=== PATIENT | male | born 1945 | race Asian ===

== ENCOUNTER 2016-07-29 15:39 | Inpatient (IN) | payer OTHER ==
--- NOTE | 2016-07-29 16:02 | CPEKG ---
Heart Rate: 59 RR Interval: 1017 P-R Interval: 176 QRSD Interval: 100 QT Interval: 496 QTC Interval: 492 P [place]: 82 QRS [place]: 46 T Wave [place]: 175 EKG Severity - ABNORMAL ECG - EKG Impression: SINUS RHYTHM EKG Impression: PROBABLE LVH WITH SECONDARY REPOL ABNRM EKG Impression: similar to previous Electronically Signed By: Thee Manley 29-Jul-2016 16:46:15
[2016-07-29 16:10] LABS: % IMMATURE GRANULYOCYTES 0.2 % (0.0-1.1); ABSOLUTE IMMATURE GRANULOCYTES 0.01 10^3/uL (0.00-0.10); ADD DIFF? NO; ADD MORPH? NO; ADD SCAN? NO; ATYPICAL LYMPHOCYTE FLAG 10 (0-99); FRAGMENT RBC FLAG 0 (0-99); HEMATOCRIT 35.6 % (40.0-51.0); HEMOGLOBIN 11.8 g/dL (13.7-17.5); LEFT SHIFT FLG 0 (0-99); LIPEMIA HEMOLYSIS FLAG 80 (0-99); MEAN CELL HEMOGLOBIN 30.8 pg (27.9-34.1); MEAN CELL HEMOGLOBIN CONCENTR. 33.1 g/dL (32.4-36.7); MEAN PLATELET VOLUME 9.9 fL (8.7-11.7); PLATELET CLUMPS FLAG 0 (0-99); PLATELET COUNT 147 10^3/uL (150-400); RED BLOOD CELL COUNT 3.83 10^6/uL (4.40-6.38); RED CELL DISTRIBUTION WIDTH 13.2 % (11.5-15.2)
[2016-07-29 16:24] LABS: INR 1.26 (0.83-1.16); PROTIME(PATIENT) 15.8 SEC (12.0-15.0)
[2016-07-29 16:33] LABS: ALANINE AMINOTRANSFERASE 48 IU/L (21-72); ALBUMIN 3.9 g/dL (3.5-5.0); ALKALINE PHOSPHATASE 81 IU/L (38-126); ANION GAP 13 mEq/L (8-16); ASPARTATE AMINOTRANSFERASE 35 IU/L (17-59); BILIRUBIN,TOTAL 0.6 mg/dL (0.1-1.4); CALCIUM 8.4 mg/dL (8.5-10.4); CARBON DIOXIDE 22 mEq/l (22-31); CHLORIDE 107 mEq/L (97-110); CREATININE 1.4 mg/dL (0.7-1.3); GLOMERULAR FILTRATION RATE 50; GLUCOSE 103 mg/dL (70-100); POTASSIUM 4.7 mEq/L (3.5-5.2); SODIUM 142 mEq/L (134-144); TOTAL PROTEIN 7.1 g/dL (6.3-8.2)
[2016-07-29 16:44] LABS: TROPONIN I 0.019 ng/mL (0-0.034)
--- NOTE | 2016-07-29 16:45 | EDPHY ---
H & P Stated Complaint: CP, SOB, and dizziness for 3 days Time Seen by Provider: 07/29/16 15:56 HPI/ROS: CHIEF COMPLAINT: Reduced exercise tolerance and dizziness HISTORY OF PRESENT ILLNESS: The patient is a 71-year-old man who is Mandarin Brazilian speaking. 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 It sounds as though he is here today for decreased exercise tolerance. his daughter states that on Wednesday and again today when he walked to her house he was more winded and tired than usual. He has not had recent fevers or illness. He does have a significant history of congestive heart failure also renal insufficiency, atrial fibrillation, recent coronary artery bypass and bioprosthetic mitral valve replacement. He has chronic parasternal chest pain from these procedures. He also has a history of diabetes type 2. Patient states that he feels dizzy like the room is spinning and that he has felt this way for almost a year since his surgery. He also states that he has intermittent chest pain but is not worse today. He has not had a cough. REVIEW OF SYSTEMS: Constitutional: See HPI EENTM: denies: blurred vision, double vision, nose congestion Respiratory: See HPI Cardiac: See HPI Gastrointestinal/Abdominal: denies: abdominal pain, diarrhea, nausea, vomiting, blood streaked stools Genitourinary: denies: dysuria, frequency, hematuria, pain Musculoskeletal: denies: joint pain, muscle pain Skin: denies: lesions, rash, jaundice, bruising Neurological: vertigo, generalized weakness no focal weakness denies: headache , numbness, paresthesia, tingling, Hematologic/Lymphatic: denies: blood clots, easy bleeding, easy bruising Immunologic/allergic: denies: HIV/AIDS, transplant EXAM: GENERAL: Thin, lying in bed, generally weak HEAD: Atraumatic, normocephalic. EYES: Patient has a difficult time cooperating with at eye exam. When he looks to the right he appears to have a gaze deficit in his right eye and cannot look past midline. He will not look to the left at all. even with fire prevention chief and daughter explaining and encouraging. He states that he cannot do it. Pupils equal round and reactive to light, sclera anicteric, conjunctiva are normal. ENT: TMs normal, nares patent, oropharynx clear without exudates. Moist mucous membranes. NECK: Normal range of motion, supple without lymphadenopathy or JVD. LUNGS: Breath sounds clear to auscultation bilaterally and equal. No wheezes rales or rhonchi. HEART: Regular rate and rhythm without murmurs, rubs or gallops. ABDOMEN: Soft, nontender, normoactive bowel sounds. No guarding, no rebound. No masses appreciated. BACK: No CVA tenderness, no spinal tenderness, step-offs or deformities EXTREMITIES: Normal range of motion, no pitting or edema. No clubbing or cyanosis. NEUROLOGICAL: No facial droop, no slurred speech Normal speech, normal gait. 5/5 strength, normal movement in all extremities, normal sensation PSYCH: Normal mood, normal affect. SKIN: Warm, dry, normal turgor, no visible rashes or lesions. Source: Patient, Family, Respiratory Supervisor, Old records Exam Limitations: Clinical condition, Language barrier - Medical/Surgical History Hx Asthma: No Hx Chronic Respiratory Disease: No Hx Diabetes: Yes Hx Cardiac Disease: Yes Hx Renal Disease: Yes Hx Cirrhosis: No Hx Alcoholism: No Hx HIV/AIDS: No Hx Splenectomy or Spleen Trauma: No Other PMH: card stents, NM, cardiogenic shock (Mar 2015) 3 vessel CABG 01/01/16 MVR, aspiration pneumonia, heart failure, renal failure, anemia, type 2 diabetes , ef 15%, afib, depression and aspiration - Family History Significant Family History: Diabetes, Hypertension - Social History Smoking Status: Former smoker Alcohol Use: None Drug Use: None Constitutional: Initial Vital Signs Temperature (C) 36.4 C 07/29/16 15:42 Heart Rate 57 L 07/29/16 15:42 Respiratory Rate 18 07/29/16 15:42 Blood Pressure 134/66 H 07/29/16 15:42 O2 Sat (%) 95 07/29/16 15:42 O2 Delivery Mode Room Air Allergies/Adverse Reactions: No Known Allergies Allergy (Verified 02/09/16 15:37) Home Medications: Medication Instructions Recorded Acetaminophen [Tylenol 325mg (*)] 650 mg PO HS 02/09/16 Aspirin [Aspirin 81mg (*)] 81 mg PO DAILY 02/09/16 Atorvastatin Calcium [Lipitor 20 20 mg PO HS 02/09/16 mg (*)] Omeprazole [Prilosec 20 mg] 20 mg PO DAILY 02/09/16 buPROPion SR [Wellbutrin 150mg SR 150 mg PO DAILY 02/09/16 (*)] traMADol [Ultram 50 mg (*)] 50 mg PO Q6H PRN 02/09/16 Amiodarone HCl [Pacerone (*)] 200 mg PO DAILY 04/10/16 Insulin Glargine [Lantus 100 10 units SC HS 04/10/16 UNITS/ML (*)] Ondansetron Odt [Zofran Odt 4 mg 4 mg PO Q6H PRN 04/10/16 (*)] Carvedilol [Coreg (*)] 3.125 mg PO BIDMEAL #60 tab 04/12/16 Furosemide [Lasix 20 MG (*)] 20 mg PO DAILY #30 tab 04/12/16 Tamsulosin HCl [Flomax 0.4 MG (*)] 0.4 mg PO DAILY #30 cap 04/12/16 Warfarin Sodium [Coumadin 3MG (*)] 3 mg PO DAILY #30 tab 04/12/16 Alfuzosin HCl [Alfuzosin HCl ER] 10 mg PO DAILY 07/29/16 Diclofenac Sodium [Voltaren Gel 1 kelli TP QID 07/29/16 (*)] Lisinopril [Zestril 5 mg (*)] 5 mg PO DAILY 07/29/16 Medical Decision Making - Diagnostics EKG Interpretation: An EKG obtained and was read and documented in trace view. Please see trace view for full reading and report. Sinus rhythm, LVH with repolarization abnormality, unchanged from previous. Imaging: X-ray: chest x-ray was obtained. I viewed the images myself on the PACS system. My interpretation of the images is: Increased atelectasis in right fissure, otherwise unchanged. The radiologist interpretation is same. Results: CT scan of the brain was obtained. The results of the study are negative for masses, multiple old areas of ischemia, atrophy. The study was read by Dr. Ramsey Godwin. I viewed the images myself on the PACS system. ED Course/Re-evaluation: The patient's initial lab work and x-ray and CT scan are unremarkable. He continues to feel weak and short of breath and dizzy. I will admit him for further workup and possibly MRI. 5:45 p.m. I discussed the case with Dr. Elgin Veliz who will admit to the medical service. He requested telemetry. Patient's initial EKG did, lab work and x-ray are reassuring. We did discuss possibly MRI for the possible gaze palsies. Differential Diagnosis: Partial list of the Differential diagnosis considered include but were not limited to; CHF, pneumonia, acute coronary disease and although unlikely based on the history and physical exam, I also considered CVA, tumor, urinary tract infection, sepsis. - Data Points Laboratory Results: Laboratory Results 07/29/16 16:00 07/29/16 16:00 07/29/16 16:00 WBC 6.40 10^3/uL (3.80-9.50) RBC 3.83 L 10^6/uL (4.40-6.38) Hgb 11.8 L g/dL (13.7-17.5) Hct 35.6 L % (40.0-51.0) MCV 93.0 fL (81.5-99.8) MCH 30.8 pg (27.9-34.1) MCHC 33.1 g/dL (32.4-36.7) RDW 13.2 % (11.5-15.2) Plt Count 147 L 10^3/uL (150-400) MPV 9.9 fL (8.7-11.7) Neut % (Auto) 50.5 % (39.3-74.2) Lymph % (Auto) 35.3 % (15.0-45.0) Delta % (Auto) 10.2 % (4.5-13.0) Eos % (Auto) 3.0 % (0.6-7.6) Baso % (Auto) 0.8 % (0.3-1.7) Nucleat RBC Rel Count 0.0 % (0.0-0.2) Absolute Neuts (auto) 3.24 10^3/uL (1.70-6.50) Absolute Lymphs (auto) 2.26 10^3/uL (1.00-3.00) Absolute Monos (auto) 0.65 10^3/uL (0.30-0.80) Absolute Eos (auto) 0.19 10^3/uL (0.03-0.40) Absolute Basos (auto) 0.05 10^3/uL (0.02-0.10) Absolute Nucleated RBC 0.00 10^3/uL (0-0.01) Immature Gran % 0.2 % (0.0-1.1) Immature Gran # 0.01 10^3/uL (0.00-0.10) PT 15.8 H SEC (12.0-15.0) INR 1.26 H (0.83-1.16) Sodium 142 mEq/L (134-144) Potassium 4.7 mEq/L (3.5-5.2) Chloride 107 mEq/L (97-110) Carbon Dioxide 22 mEq/l (22-31) Anion Gap 13 mEq/L (8-16) BUN 28 H mg/dL (7-23) Creatinine 1.4 H mg/dL (0.7-1.3) Estimated GFR 50 Glucose 103 H mg/dL (70-100) Calcium 8.4 L mg/dL (8.5-10.4) Total Bilirubin 0.6 mg/dL (0.1-1.4) AST 35 IU/L (17-59) ALT 48 IU/L (21-72) Alkaline Phosphatase 81 IU/L (38-126) Troponin I 0.019 ng/mL (0-0.034) Total Protein 7.1 g/dL (6.3-8.2) Albumin 3.9 g/dL (3.5-5.0) Departure - Departure Disposition: [facility] Inpatient Acute Clinical Impression: Dyspnea on exertion, Vertigo, Chest wall pain Condition: Fair
--- NOTE | 2016-07-29 17:29 | CT ---
CT Brain (Without Contrast) 1657 hours History: Dizziness, abnormal gaze, abnormal gait, prior infarcts. Technique: Axial computed tomographic images of the brain, without contrast. Dose reduction techniq ues were utilized. Comparison: March 2016. Findings: Multiple old infarcts involving the posteroinferior medial aspects of bilateral cerebellar hemispheres consistent with old PICA infarcts. Atrophy and possible old infarct of the right medull a. Severe atherosclerotic calcifications of bilateral vertebral arteries and basilar artery. Severe atherosclerotic calcifications of bilateral supraclinoid internal carotid arteries. Old linear infa rct in the left basal ganglia extending from the caudate body through the lentiform nucleus. Old sub centimeter lacunar infarct right caudate head. Asymmetric bilateral parietal atrophy. Ventricles, c isterns, and sulci are widened consistent with atrophy. No hydrocephalus, midline shift/herniation, or epidural/subdural hematomas. No acute intraparenchymal hemorrhage or mass effect. Cerebrovascula r atherosclerosis. Hypodensities in the white matter of bilateral cerebral hemispheres. Bone window s demonstrate no displaced fractures. Paranasal sinuses and mastoid air cells are clear. Impressions 1. Multiple old infarcts involving bilateral basal ganglia, left greater than right, and bilateral c erebellar hemispheres, PICA infarcts, and right side of the medulla. 2. No acute hemorrhage, hydrocephalus, or mass effect. 3. Severe cerebrovascular atherosclerosis. 4. No definite acute infarct. 5. Moderate diffuse atrophy. 6. Moderate microvascular ischemic gliosis. 7. Consider MRI of the brain, without and with contrast enhancement, if there is continued clinical concern. Findings and recommendations discussed with Emergency Department physician, Dr. Thee Manley, at 171 5 hours on July 29, 2016. Final report concurs with initial preliminary interpretation.
--- NOTE | 2016-07-29 17:37 | DX ---
PA and Lateral Chest July 29, 2016 History: Chest pain. Comparison: PA and lateral chest May 06, 2016. CT angiogram chest January 31, 2016. Findings: There is a moderate fluid collection in the right major fissure. Small bilateral pleural effusions are otherwise stable. Streaky opacities, most prominent in the left upper and lower lobes, are not significantly changed. Mild cardiomegaly, artificial mitral valve, coronary stent, and ster notomy wires are again noted. The bones are stable. Impressions 1. Increased fluid in the right major fissure, with otherwise stable small bilateral pleural effusio ns. 2. Stable streaky bilateral opacities suggesting atelectasis/scarring.
[2016-07-29] MEDS ORDERED: ONDANSETRON 4 MG/2 ML VIAL IVP PRN (17:57)
[2016-07-29] MEDS ORDERED: ONDANSETRON DISINTEGRATING 4 MG TAB PO PRN (17:57)
[2016-07-29] MEDS ORDERED: traMADol 50 MG TAB PO PRN (18:30)
--- NOTE | 2016-07-29 19:03 | GHP ---
[f rep st] HISTORY AND PHYSICAL DATE OF ADMISSION: 07/29/2016 CHIEF COMPLAINT: Dizziness. HISTORY OF PRESENT ILLNESS: This is a 71-year-old male with a significant cardiac history also [place] rin speaking who presents with dizziness. He was seen with the help of the language line outside sales account executive though history is still difficult. Apparently, he was at cardiac rehab today working on the [employer] when he became dizzy. He tells me that he has had left-sided stabbing chest pain for about the week. Since then, he has felt more short of breath. The dizziness was new today. He tells me th at this pain is similar to when he had cardiac issues requiring interventions in the past. He has be en taking all of his medications otherwise. His cardiac history is notable for having had a CABG in November. He had also had percutaneous stents vinicio audra before that. His last ejection fraction was measured in March of 2016 in our system here. I t showed an EF of 25%. I was informed by Dr Manley in the emergency department that he was concerned that the patient had a n eye deviation issue although he felt as though this exam was difficult. PAST MEDICAL/SURGICAL HISTORY: 1. Coronary artery disease, status post PCI as well as CABG. 2. Ischemic cardiomyopathy with an EF of 25%. 3. Closed head injury. 4. CVA. 5. Diabetes mellitus type 2. 6. DVT. 7. Paroxysmal atrial fibrillation. 8. Mitral regurgitation status post mitral valve replacement. 9. Depression. 10. Chronic renal failure. MEDICATIONS: Please see medication reconciliation. SOCIAL HISTORY: He lives with his daughter and family. He does not smoke. He does not drink. FAMILY HISTORY: Parents are . REVIEW OF SYSTEMS: Ten-point review of systems is conducted and is negative except per HPI. PHYSICAL EXAMINATION: VITAL SIGNS: Blood pressure 134/66, heart rate 57, respiration rate 18, satur ating 95% on room air, temperature 36.4. GENERAL: The patient is a pleasant man who appears comfort able. Otherwise, in no acute distress. HEENT: Mucous membranes moist. CARDIOVASCULAR: Regular ra te and rhythm. He has a 2/6 systolic murmur. He has a split S2. PULMONARY: Lungs clear bilaterall y. ABDOMEN: Soft, nontender, nondistended. SKIN: No rash. : No [place]. NEUROLOGIC: Shows him to be alert and oriented x3. It is unclear if he has a gaze deviation or not. He seems to have dif ficulty following eye movement commands through the outside sales account executive though I did note that he seemed to h ave full ocular range of motion when I was not examining him. PSYCHIATRIC: Shows a normal mood and affect. LABS: Hemoglobin is 11.8. INR is 1.26. Lactate is 1.3. Creatinine is 1.4. DATA: 1. I discussed this with Dr Manley, we will admit to telemetry. 2. I personally viewed and interpreted his chest x-ray. This shows sternotomy wires. There is noth ing acute. He has mild cardiomegaly. He does have bilateral pleural effusions. 3. EKG, which I personally reviewed and interpreted, shows an incomplete left bundle branch block. There is repolarization abnormality. This is unchanged from his prior. IMPRESSION/PLAN: A 71-year-old man presents with chest pain and dizziness. 1. Chest pain and dizziness in the setting of known coronary artery disease associated with some jc rtness of breath: Discussed with Dr. Rojas. We will monitor him on telemetry, follow serial cardiac enzymes, get an echocardiogram in the morning. Shortness of breath may be due to slightly increased fluid in the major fissure though would not explain his other complaints. Appreciate Cardiology's e valuation. 2. Question of eye gaze disorder: I think that this is more an issue of the patient not understandi ng the physical exam. I did see him move his eyes in all 4 quadrants when I was not actually examini ng him though he does not move them on command. He also tells me that his eyes are blurry though he says that this has been the case for some time. 3. Chronic kidney disease: Creatinine today is 1.4. This is at his baseline. 4. Anemia: Actually slightly higher than recent. 5. Ischemic cardiomyopathy: We will get echocardiogram. I note that he does not have an AICD in pl [place]. We will defer this to Cardiology. 6. Code status on his last admission was full. I will continue this. 7. Need for anticoagulation: His INR is low today. He has clots as well as atrial fibrillation. C ertainly, symptoms could be due to a pulmonary embolus. I will give him bridging therapy for now giv en acute complaints. 8. Diabetes mellitus: We will continue his home glargine, follow his blood sugars, place him on sli ding scale. 9. BPH: Flomax. /[id number]/MODL
[2016-07-29] MEDS ORDERED: D50W 25 GM/50 ML SYR IVP PRN (19:18)
[2016-07-29] MEDS ORDERED: HEPARIN 5,000 UNIT/0.5 ML SYR SC SCH (22:00)
[2016-07-29] MEDS: INSULIN GLARGINE 100 UNITS/ML SYRINGE SC SCH (23:01)
[2016-07-29] MEDS: ATORVASTATIN CALCIUM 20 MG TAB PO SCH (23:03)
[2016-07-29] MEDS: DICLOFENAC SODIUM TP SCH (23:03)
[2016-07-29] MEDS: ENOXAPARIN 60 MG/0.6 ML SYR SC SCH (23:03)
[2016-07-30] MEDS: DICLOFENAC SODIUM TP SCH ×4 (05:03→21:12)
[2016-07-30 06:14] LABS: % IMMATURE GRANULYOCYTES 0.1 % (0.0-1.1); ABSOLUTE IMMATURE GRANULOCYTES 0.01 10^3/uL (0.00-0.10); ADD DIFF? NO; ADD MORPH? NO; ADD SCAN? NO; ATYPICAL LYMPHOCYTE FLAG 10 (0-99); FRAGMENT RBC FLAG 0 (0-99); HEMATOCRIT 32.5 % (40.0-51.0); HEMOGLOBIN 11.2 g/dL (13.7-17.5); LEFT SHIFT FLG 0 (0-99); LIPEMIA HEMOLYSIS FLAG 90 (0-99); MEAN CELL HEMOGLOBIN 31.5 pg (27.9-34.1); MEAN CELL HEMOGLOBIN CONCENTR. 34.5 g/dL (32.4-36.7); MEAN CELL VOLUME 91.5 fL (81.5-99.8); MEAN PLATELET VOLUME 10.1 fL (8.7-11.7); PLATELET CLUMPS FLAG 10 (0-99); PLATELET COUNT 144 10^3/uL (150-400); RED BLOOD CELL COUNT 3.55 10^6/uL (4.40-6.38)
[2016-07-30 06:27] LABS: INR 1.33 (0.83-1.16); PROTIME(PATIENT) 16.5 SEC (12.0-15.0)
[2016-07-30 06:28] LABS: ANION GAP 9 mEq/L (8-16); CALCIUM 8.7 mg/dL (8.5-10.4); CARBON DIOXIDE 25 mEq/l (22-31); CHLORIDE 111 mEq/L (97-110); CREATININE 1.2 mg/dL (0.7-1.3); GLOMERULAR FILTRATION RATE > 60; GLUCOSE 101 mg/dL (70-100); SODIUM 145 mEq/L (134-144)
[2016-07-30] MEDS ORDERED: CARVEDILOL 3.125 MG TAB PO SCH (08:00)
[2016-07-30] MEDS: INSULIN LISPRO 100 UNIT/ML SC SCH ×3 (08:59→18:34)
[2016-07-30] MEDS ORDERED: FUROSEMIDE 20 MG TAB PO SCH (09:00)
[2016-07-30] MEDS ORDERED: TAMSULOSIN HCL 0.4 MG CAP PO SCH (09:00)
--- NOTE | 2016-07-30 09:48 | ECHO ---
[id number] + + [address] : : [place] [address] : : [phone] + Adult Echocardiographic Report + ---+ :Name: LEIDY Melvin Date: 07/30/2016 08:39 AM : : Hospital Admission Number: [id number] Location: 210: :: 1945 Gender: Male Height: 66 in : :Age: 71 yrs Race: Weight: 144 lb : :Reason For Study: Eval LV Fx : : BSA: 1.7 meters2 : :History: Chest Pain, Elevated Troponins, Known EF of 25% : :and MVR : + ---+ MMode/2D Measurements & Calculations IVSd: 1.1 cm LVIDd: 6.2 cm FS: 15.5 % Ao root diam: LVPWd: 1.1 cm LVIDs: 5.2 cm EDV(Teich): 2.9 cm 191.1 ml ACS: 1.2 cm ESV(Teich): 129.9 ml EF(Teich): 32.0 % LVLd ap4: 7.8 cm SV(MOD-sp4): EDV(MOD-sp4): 30.0 ml 123.0 ml LVLs ap4: 7.8 cm ESV(MOD-sp4): 93.0 ml EF(MOD-sp4): 24.4 % Normal Measurement Values: + + :LVIDd (3.5-5.7cm) IVSd (0.6-1.1cm) LVPWd (0.6-1.1cm) Aortic Root (2.0-3.7cm)Left Atrium (1.5-4.0cm): :LV Vol(d) (76-115ml) LV Vol(s) (29-48ml) Ejec Fraction (50-65%)PV Atul (0.6- 1.2m/s) TV Atul (0.4-1.0m/s) : :MV E Atul (0.8-1.0m/s)MV A Atul (0.3-1.0m/s)LVOT Atul (0.7-1.2m/s) Asc Ao Atul ( 0.9-1.8m/s) : + + Doppler Measurements & Calculations MV E max atul: MV V2 mean: MV P1/2t max atul: Ao V2 max: 184.4 cm/sec 104.1 cm/sec 205.0 cm/sec 108.6 cm/sec MV A max atul: MV mean PG: MV P1/2t: 113.4 msec Ao max P.0 cm/sec 5.7 mmHg MVA(P1/2t): 1.9 cm2 4.7 mmHg MV E/A: 1.7 MV V2 VTI: MV dec slope: MV dec time: 81.4 cm 0.37 sec 529.6 cm/sec2 LV V1 max: PA V2 max: PI end-d atul: TR max atul: 87.1 cm/sec 82.8 cm/sec 177.8 cm/sec 309.1 cm/sec LV V1 max PG: PA max PG: TR max P.0 mmHg 2.7 mmHg 38.2 mmHg RAP systole: 5.0 mmHg RVSP(TR): 43.2 mmHg Left Ventricle The left ventricle is mild to moderately dilated. There is normal left ventricular wall thickness. Ejection Fraction = 25%. There is Doppler evidence for diastolic dysfunction. There is severe global hypokinesis of the left ventricle. Known severe hypokinesis of the mid and basilar anteroseptal rae. Right Ventricle The right ventricle is normal in size and function. Atria The left atrial size is normal. Right atrial size is normal. Mitral Valve There is no mitral valve stenosis. There is trace to mild mitral regurgitation. There is a bioprosthetic mitral valve. The prosthetic mitral valve is well-seated. Normal prosthetic mitral valve gradients. Tricuspid Valve There is mild tricuspid regurgitation. Right ventricular systolic pressure is 43mmHg. There is Doppler evidence for mild pulmonary hypertension. Aortic Valve Mild Aortic Valve Calcification. There is no aortic stenosis. There is no aortic insufficiency. Pulmonic Valve The pulmonic valve is normal in structure and function. Trace pulmonic valvular regurgitation. Great Vessels The aortic root is normal size. Pericardium/Pleural There is no pericardial effusion. Conclusion A complete two-dimensional transthoracic echocardiogram was performed (2D, M-mode, Doppler and color flow Doppler). The left ventricle is mild to moderately dilated. Ejection Fraction = 25%. There is Doppler evidence for diastolic dysfunction. There is severe global hypokinesis of the left ventricle. Known severe hypokinesis of the mid and basilar anteroseptal rae. The left atrial size is normal. There is a bioprosthetic mitral valve. The prosthetic mitral valve is well-seated. There is no mitral valve stenosis. Normal prosthetic mitral valve gradients. There is trace to mild mitral regurgitation. There is mild tricuspid regurgitation. There is Doppler evidence for mild pulmonary hypertension. Right ventricular systolic pressure is 43mmHg. Mild Aortic Valve Calcification There is no aortic stenosis. There is no aortic insufficiency. The pulmonic valve is normal in structure and function. Trace pulmonic valvular regurgitation. The aortic root is normal size. There is no pericardial effusion. Final Reading Physician: Raya Perla signed on 07/30/2016 09:47 AM Ordering Physician: Elgin Veliz Performed By: Tyrone Nixon RDCS
[2016-07-30] MEDS: AMIODARONE HCL 200 MG TAB PO SCH (09:51)
[2016-07-30] MEDS: buPROPion SR 150 MG TAB PO SCH (09:51)
[2016-07-30] MEDS: LISINOPRIL 5 MG TAB PO SCH (09:51)
[2016-07-30] MEDS: PANTOPRAZOLE SODIUM 40 MG TAB PO SCH (09:51)
[2016-07-30] MEDS: ASPIRIN 81 MG CHEWABLE TAB PO SCH (09:51)
[2016-07-30] MEDS: TAMSULOSIN HCL 0.4 MG CAP PO SCH (09:51)
[2016-07-30] MEDS: ENOXAPARIN 60 MG/0.6 ML SYR SC SCH (09:52)
--- NOTE | 2016-07-30 10:42 | PDCARPN ---
Cardiology Progress Note Assessment/Plan: Assessment: Plan: Subjective: Reports sharp L sided chest pain and "puffiness". Objective: Vital Signs (8 Hrs) Temp Pulse Resp BP Pulse Ox 07/30/16 07:35 36.9 C 63 14 142/74 H 97 07/30/16 04:00 36.8 C 81 20 140/70 H 99 Intake/Output (24 Hrs) 07/29/16 07/30/16 07/31/16 05:59 05:59 05:59 Intake Total 240 Output Total 900 325 Balance -660 -325 Intake: Oral (ml) 240 Output: Urine (ml) 900 325 Urinal 900 325 Other: Weight 66.5 kg Result Diagrams: 07/30/16 05:35 07/30/16 05:35 Cardiac Labs: Cardiac Lab Results (72 Hrs) 07/30/16 07/30/16 05:35 00:10 Troponin I 0.050 H 0.027 - Physical Exam Constitutional: no apparent distress Eyes: anicteric sclera Ears, Nose, Mouth, Throat: moist mucous membranes Cardiovascular: regular rate and rhythm, no murmurs Respiratory: other (bibasilar rales) Gastrointestinal: normoactive bowel sounds, no masses Skin: no edema Psychiatric: cooperative, interactive, not anxious ICD10 Worksheet Patient Problems: Problems Problem Status Diagnosed Chest wall pain Acute Dehydration Acute Dyspnea on exertion Acute Heart failure Acute Hyperkalemia Acute Hypotension Acute Renal failure, acute Acute Vertigo Acute ISIDRO (acute kidney injury) Acute Atrial fibrillation Acute Bacteremia due to Enterococcus Acute Chest pain Acute Congestive heart failure Acute Empyema of pleural space Acute Hypoxia Acute Palliative care encounter Acute Pleuritis Acute Pulmonary edema Acute Right middle lobe pneumonia Acute Severe sepsis Acute CAD in elem artery Chronic Chronic anticoagulation Chronic Coronary stent restenosis Chronic Ischemic cardiomyopathy Chronic Language barrier, cultural differences Chronic S/P CABG x 3 Chronic S/P mitral valve replacement with bioprosthetic valve Chronic
[2016-07-30] MEDS ORDERED: diphenhydrAMINE 25 MG CAP PO ONE ×2 (10:43→12:37)
[2016-07-30] MEDS ORDERED: FAMOTIDINE 20 MG TAB PO ONE (10:43)
[2016-07-30] MEDS ORDERED: DIAZEPAM 5 MG TAB PO ONE (10:43)
[2016-07-30] MEDS ORDERED: FAMOTIDINE 20 MG TAB ONE (12:37)
[2016-07-30] MEDS ORDERED: ASPIRIN EC 325 MG TAB PO ONE (12:37)
[2016-07-30] MEDS ORDERED: DIAZEPAM 5 MG TAB ONE (12:37)
[2016-07-30] MEDS ORDERED: IOPAMIDOL (ISOVUE-370) 150 ML BTL IV ONE ×2 (14:12→14:56)
[2016-07-30] MEDS ORDERED: fentaNYL 100 MCG/2 ML INJ ONE (14:12)
[2016-07-30] MEDS ORDERED: LIDOCAINE 1% 30 ML SDV ONE (14:12)
[2016-07-30] MEDS ORDERED: MIDAZOLAM 2 MG/2 ML VIAL ONE (14:12)
[2016-07-30] MEDS ORDERED: ATROPINE SULFATE 1 MG/10 ML SYR ONE (15:21)
[2016-07-30] MEDS ORDERED: NITROGLYCERIN 0.4 MG BTL SL PRN (15:23)
[2016-07-30] MEDS ORDERED: ATROPINE SULFATE 1 MG/10 ML SYR IVP PRN (15:23)
--- NOTE | 2016-07-30 15:40 | PDDXCAT ---
Diagnostic Cath Note - . Date: 07/30/16 Monument Mason: Truman Indication: other (Recurrent chest pain, CAD with h/o CABG (and bio-MVR), Ischemic cardiomyopathy, Acute on chronic systolic CHF ) - Procedure Access: right groin Procedure: left heart catheterization, coronary angiography, left ventriculogram , vein graft injection, YORK injection, right heart catheterization - Materials Left Heart Cath size: 6F Left Heart Cath materials: standard multipack (JL4, JR4, pigtail) Right Heart Cath size: 7F Right Heart Cath materials: PWP catheter - Findings-Left Heart Catheterization LM: Mild disease. LAD: Proximal LAD stent with severe restenosis up to 90%; mid-LAD 100%. LCX: 80% ostial; mid-Circ 90% after the origin of OM-2 jeopardizing a small posterolateral branch. RCA: 70% proximal; mid-RCA 100%. rSV) SVG to diagonal: patent with good flow. 2) SVG to OM-2: patent with good flow. YORK: YORK to LAD patent with good flow. EDP: 24 mmHg LVEF: 20% Wall motion: Global hypokinesis with inferior akinesis. - Findings-Right Heart Catheterization RA: 8 mmHg RV: 46/6 mmHg PA: 44/18/28 mmHg O2 sat 64.2% PAOP: 22 mmHg AO: 138/62/90 mmHg O2 sat 97.0 % CO: 4.47 L/min CI: 2.5 L/min/sq mtr Complications: None Estimated blood loss: <50ml Closure method: manual pressure Assessment: 1) Ischemic cardiomyopathy with severely reduced left ventricular systolic function. 2) Coronary artery disease as described above. 3) All three bypass grafts patent. 4) Mild pulmonary hypertension. Plan: Gentle diuresis. Qualifies for consideration of ICD implantation. Uptitrate carvedilol for BP control and antianginal effect. Add long-acting nitrate therapy. Patient Problems: Problems Problem Status Diagnosed Chest wall pain Acute Dehydration Acute Dyspnea on exertion Acute Heart failure Acute Hyperkalemia Acute Hypotension Acute Renal failure, acute Acute Vertigo Acute ISIDRO (acute kidney injury) Acute Atrial fibrillation Acute Bacteremia due to Enterococcus Acute Chest pain Acute Congestive heart failure Acute Empyema of pleural space Acute Hypoxia Acute Palliative care encounter Acute Pleuritis Acute Pulmonary edema Acute Right middle lobe pneumonia Acute Severe sepsis Acute CAD in [place] artery Chronic Chronic anticoagulation Chronic Coronary stent restenosis Chronic Ischemic cardiomyopathy Chronic Language barrier, cultural differences Chronic S/P CABG x 3 Chronic S/P mitral valve replacement with bioprosthetic valve Chronic
--- NOTE | 2016-07-30 16:35 | HOSPPROG ---
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 Objective: Vital Signs Temp Pulse Resp BP Pulse Ox 36.7 C 60 14 125/70 H 98 07/30/16 11:48 07/30/16 11:48 07/30/16 11:48 07/30/16 11:48 07/30/16 11:48 Laboratory Results 07/30/16 05:35 07/30/16 05:35 07/29/16 07/30/16 07/31/16 05:59 05:59 05:59 Intake Total 240 Output Total 900 325 Balance -660 -325 PT 16.5 SEC (12.0-15.0) H 07/30/16 05:35 INR 1.33 (0.83-1.16) H 07/30/16 05:35 ICD10 Worksheet Patient Problems: Problems Problem Status Diagnosed Chest wall pain Acute Dehydration Acute Dyspnea on exertion Acute Heart failure Acute Hyperkalemia Acute Hypotension Acute Renal failure, acute Acute Vertigo Acute ISIDRO (acute kidney injury) Acute Atrial fibrillation Acute Bacteremia due to Enterococcus Acute Chest pain Acute Congestive heart failure Acute Empyema of pleural space Acute Hypoxia Acute Palliative care encounter Acute Pleuritis Acute Pulmonary edema Acute Right middle lobe pneumonia Acute Severe sepsis Acute CAD in [place] artery Chronic Chronic anticoagulation Chronic Coronary stent restenosis Chronic Ischemic cardiomyopathy Chronic Language barrier, cultural differences Chronic S/P CABG x 3 Chronic S/P mitral valve replacement with bioprosthetic valve Chronic
[2016-07-30] MEDS: WARFARIN SODIUM 3 MG TAB PO SCH (18:33)
[2016-07-30] MEDS: CARVEDILOL 6.25 MG TAB PO SCH (18:43)
[2016-07-30] MEDS: ATORVASTATIN CALCIUM 20 MG TAB PO SCH (21:11)
[2016-07-30] MEDS: HYDROCODONE/APAP 5/325 TAB PO PRN (21:11)
[2016-07-30] MEDS: INSULIN GLARGINE 100 UNITS/ML SYRINGE SC SCH (21:12)
[2016-07-31 05:11] LABS: INR 1.15 (0.83-1.16); PROTIME(PATIENT) 14.7 SEC (12.0-15.0)
[2016-07-31] MEDS: DICLOFENAC SODIUM TP SCH ×4 (05:19→20:49)
--- NOTE | 2016-07-31 08:42 | CPEKG ---
Heart Rate: 59 RR Interval: 1017 P-R Interval: 196 QRSD Interval: 100 QT Interval: 448 QTC Interval: 444 P Greenfield: 81 QRS [place]: 54 T Wave [place]: 163 EKG Severity - ABNORMAL ECG - EKG Impression: SINUS RHYTHM EKG Impression: LVH WITH SECONDARY REPOL ABNRM Electronically Signed By: Freeman Rojas 31-Jul-2016 17:44:49
[2016-07-31] MEDS: CARVEDILOL 6.25 MG TAB PO SCH (08:53)
[2016-07-31] MEDS ORDERED: FUROSEMIDE 40 MG/4 ML VIAL IVP SCH (09:00)
[2016-07-31] MEDS: LISINOPRIL 5 MG TAB PO SCH (10:00)
[2016-07-31] MEDS: AMIODARONE HCL 200 MG TAB PO SCH (10:00)
[2016-07-31] MEDS: ISOSORBIDE MONONITRATE 30 MG TAB.SR PO SCH (10:00)
[2016-07-31] MEDS: buPROPion SR 150 MG TAB PO SCH (10:00)
[2016-07-31] MEDS: PANTOPRAZOLE SODIUM 40 MG TAB PO SCH (10:00)
[2016-07-31] MEDS: TAMSULOSIN HCL 0.4 MG CAP PO SCH (10:00)
[2016-07-31] MEDS: ASPIRIN 81 MG CHEWABLE TAB PO SCH (10:00)
[2016-07-31] MEDS: INSULIN LISPRO 100 UNIT/ML SC SCH ×3 (10:32→17:57)
[2016-07-31] MEDS ORDERED: NS 1,000 ML IV ONE (10:37)
[2016-07-31] MEDS ORDERED: diphenhydrAMINE 25 MG CAP PO ONE (10:37)
[2016-07-31] MEDS ORDERED: DIAZEPAM 5 MG TAB PO ONE (10:37)
[2016-07-31] MEDS ORDERED: ceFAZolin 2 GM/DEXTROSE 100 ML IV ONE ×2 (10:37→11:00)
[2016-07-31] MEDS ORDERED: BACITRACIN IRRIGATION/NS 50,000 UNITS/1,000 ML BTL IRR ONE (10:37)
[2016-07-31] MEDS ORDERED: LIDOCAINE 1% 30 ML SDV ONE (10:56)
[2016-07-31] MEDS ORDERED: MIDAZOLAM 2 MG/2 ML VIAL ONE (10:57)
[2016-07-31] MEDS ORDERED: BUPIVACAINE 0.5% 30 ML SDV ONE (10:57)
[2016-07-31] MEDS ORDERED: fentaNYL 100 MCG/2 ML INJ ONE (10:57)
[2016-07-31] MEDS ORDERED: IOPAMIDOL (ISOVUE-300) 50 ML VIAL IV ONE (10:58)
--- NOTE | 2016-07-31 12:06 | HOSPPROG ---
Hospitalist Progress Note Assessment/Plan: This is a 71-year-old male with history of coronary artery disease presenting with # chest pain (atypical) suspect msk pain in the setting of previous sternotomy -continue care per Cardiology # ischemic cardiomyopathy -plan for ICD later today # possible gaze disorder (resolved) # history of VT and atrial fibrillation -continue anticoagulation with Lovenox # history diabetes mellitus -continue home dose of glargine and sliding scale # BPH Subjective: pt seen with mandarin diplomatic interpreter/translator present. continues to have sharp sternal pain. no sob. daughter reports dizziness with standing and exertion Objective: Vital Signs Temp Pulse Resp BP Pulse Ox 36.4 C 57 L 16 127/71 H 96 07/31/16 08:16 07/31/16 08:16 07/31/16 08:16 07/31/16 08:16 07/31/16 08:16 07/30/16 07/31/16 08/01/16 05:59 05:59 05:59 Intake Total 170 Output Total 175 Balance -5 PT 14.7 SEC (12.0-15.0) 07/31/16 03:50 INR 1.15 (0.83-1.16) 07/31/16 03:50 - Physical Exam Constitutional: no apparent distress, appears nourished, not in pain Cardiovascular: regular rate and rhythym, no murmur, rub, or gallop Respiratory: no respiratory distress, no rales or rhonchi, clear to auscultation Gastrointestinal: normoactive bowel sounds, soft, non-tender abdomen, no palpable masses Skin: no rashes or abrasions, no fluctuance, no induration ICD10 Worksheet Patient Problems: Problems Problem Status Diagnosed Chest wall pain Acute Dehydration Acute Dyspnea on exertion Acute Heart failure Acute Hyperkalemia Acute Hypotension Acute Renal failure, acute Acute Vertigo Acute ISIDRO (acute kidney injury) Acute Atrial fibrillation Acute Bacteremia due to Enterococcus Acute Chest pain Acute Congestive heart failure Acute Empyema of pleural space Acute Hypoxia Acute Palliative care encounter Acute Pleuritis Acute Pulmonary edema Acute Right middle lobe pneumonia Acute Severe sepsis Acute CAD in [place] artery Chronic Chronic anticoagulation Chronic Coronary stent restenosis Chronic Ischemic cardiomyopathy Chronic Language barrier, cultural differences Chronic S/P CABG x 3 Chronic S/P mitral valve replacement with bioprosthetic valve Chronic
--- NOTE | 2016-07-31 13:42 | EPPROC ---
Electrophysiology Procedure Note: PROCEDURE PERFORMED: * Implantation of an A-V Implantable Cardioverter Defibrillator * Subclavian vein angiography * Fluoroscopy * EP study induction of ventricular fibrillation and defibrillation testing INDICATION: This is a 71 yr old male with past history of CAD s/p AL, s/p CABG in November 2015, s/p MVR who has EF 25% despite optimal medical management. he is in NYA III. In view of this he was a candidate for ICD. He has baseline sinus bradycardia making it difficult to increase BB. Furthermore, he has PAF. Hence it was decided to implant dual chamber ICD. PROCEDURE NOTE: Patient presented to the cardiac catherization laboratory in a fasting, postabsorptive state. The left infraclavicular area was prepped and draped in the usual sterile fashion.Moderate sedation administered. Lidocaine plus bupivacaine was used for local anesthesia. Using a combination of blunt and sharp dissection and electrocautery, the dissection was carried down to the prepectoral fascia. All bleeding was controlled with electrocautery. Fluoroscopy was utilized during the entire procedure for venous access and placement of the leads. Using usual technique, left cephalic vein was accessed and with the help of guidewire a 9F sheath was placed. An active fixation ventricular ICD lead was advanced into the right ventricular apex and screwed in place. An active fixation atrial lead was advanced into the right atrium and screwed in place. The peel away sheaths were removed. Pacing thresholds, sensing parameters and leads impedances were measured. There was no diaphragmatic stimulation at maximum output. The leads were sutured to the prepectoral fascia with 3 non- absorbable sutures. Pocket was created. It was flushed using antibiotic solution./ The pocket was again inspected for any bleeding. The leads were attached to the ICD securely. The ICD was inserted into the pocket and secured in place with a nonabsorbable suture. Fluoroscopy was performed in BALTAZAR and MALAWIAN planes to verify right sided placement of the leads. Also fluoroscopy of the ICD pocket was performed. Defibrillation testing was performed. The ICD pocket was closed in 3 layers with absorbable monocryl sutures.. Appropriate dressing was applied. The patient left the cardiac catheterization laboratory in stable condition. Serial Numbers: * DeviceST Pranay Medical Eric [address] DR SN [id number] * Atrial Lead ST Pranay Tendril [id number] SN [id number] * Ventricular Lead St Pranay Durata [id number] Stimulation Thresholds & Impedance Measurements: * Atrial Lead 4.5mV, 0.4@0.5ms, 513Ohms * Ventricular Lead 27.7mV, 0.6@0.5ms, 485Ohms Defibrillation testing: Ventricular fibrillation was induced by T-shock. The device sensed the ventricular fibrillation appropriately at minimum ventricular sensitivity (1.2 mV). A single DC shock of 30 Joule converted the ventricular fibrillation to sinus rhythm. Ventricular sensitivity was permanent programmed to 0.3 mV. Pacing Parameters: * Pacing mode DDD * Lower rate 40 * Upper tracking rate 120 * Upper sensor rate 120 Tachycardia therapy parameters: VF zone: Detection 187 bpm First therapy 40Joule Subsequent therapies 40Joule Patient Problems: Problems Problem Status Diagnosed Chest wall pain Acute Dehydration Acute Dyspnea on exertion Acute Heart failure Acute Hyperkalemia Acute Hypotension Acute Renal failure, acute Acute Vertigo Acute ISIDRO (acute kidney injury) Acute Atrial fibrillation Acute Bacteremia due to Enterococcus Acute Chest pain Acute Congestive heart failure Acute Empyema of pleural space Acute Hypoxia Acute Palliative care encounter Acute Pleuritis Acute Pulmonary edema Acute Right middle lobe pneumonia Acute Severe sepsis Acute CAD in [place] artery Chronic Chronic anticoagulation Chronic Coronary stent restenosis Chronic Ischemic cardiomyopathy Chronic Language barrier, cultural differences Chronic S/P CABG x 3 Chronic S/P mitral valve replacement with bioprosthetic valve Chronic
[2016-07-31] MEDS: HYDROCODONE/APAP 5/325 TAB PO PRN (15:32)
[2016-07-31] MEDS ORDERED: NS 500 ML IV ONE (17:00)
--- NOTE | 2016-07-31 17:18 | SOAPPROG ---
[facility] Progress Note Assessment/Plan: Assessment: 71 y/o man Yakut speaking with IDDM, CAD s/p CABG and BIOMVR in December 2015 and chronic ischemic systolic CHF with LVEF 25% and class II-III NYHA sx. His post op course back seven months ago was very celina in hospital for six weeks. I have been following him closely in [facility]. At first I was not sure he would survive > one year so AICD placement was not discussed. He has been doing better able to participate in out-pt cardiac rehab and KEVIN at 2-3 blocks. Admitted from cardiac rehab with tiredness and CP two days ago. Updated L/R cardiac cath showed patent bypass grafts with LVEF 25% and [facility] hemodynamics : RA 8, PA 44/18 (28), PCWP 22 and CO/CI 4.5/2.5 L/min. He got an AICD today. He is tired and feels his vision is foggy. 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 On exam appears euvolemic to a little dry. PLAN: 1)d/c IV lasix 2)NS 500cc IV bolus over three hours 3)hold CHF meds if SBP < 95 4)probably restart on Lasix 40mg PO qam tommorrow. 5)anticipate home wednesday afternoon or wednesday AM if SBP stable and ambulating hallways okay answered all pt and family's question. Time with pt 45 minutes 07/31/16 17:12 Subjective: s/p AICD today at noon. Tired and some blurred vision. Denies CP, rest shortness of breath, back pain or PND. Objective: Vital Signs Temp Pulse Resp BP Pulse Ox 36.4 C 57 L 16 127/71 H 96 07/31/16 08:16 07/31/16 08:16 07/31/16 08:16 07/31/16 08:16 07/31/16 08:16 07/30/16 07/31/16 08/01/16 05:59 05:59 05:59 Intake Total 170 Output Total 175 Balance -5 PT 14.7 SEC (12.0-15.0) 07/31/16 03:50 INR 1.15 (0.83-1.16) 07/31/16 03:50 Physical Exam - Physical Exam General Appearance: alert EENT: normal ENT inspection Neck: non-tender Respiratory: chest non-tender, lungs clear Cardiac/Chest: regular rate, rhythm, gallop, systolic murmur, No JVD (JVP to 7cm.) Peripheral Pulses: 2+: carotid (R), carotid (L), femoral (R), femoral (L), dorsalis-pedis (R), dorsalis-pedis (L) Abdomen: normal bowel sounds, No organomegaly, No ascites Skin: warm/dry Extremities: No pedal edema ICD10 Worksheet Patient Problems: Problems Problem Status Diagnosed Chest wall pain Acute Dehydration Acute Dyspnea on exertion Acute Heart failure Acute Hyperkalemia Acute Hypotension Acute Renal failure, acute Acute Vertigo Acute ISIDRO (acute kidney injury) Acute Atrial fibrillation Acute Bacteremia due to Enterococcus Acute Chest pain Acute Congestive heart failure Acute Empyema of pleural space Acute Hypoxia Acute Palliative care encounter Acute Pleuritis Acute Pulmonary edema Acute Right middle lobe pneumonia Acute Severe sepsis Acute CAD in [place] artery Chronic Chronic anticoagulation Chronic Coronary stent restenosis Chronic Ischemic cardiomyopathy Chronic Language barrier, cultural differences Chronic S/P CABG x 3 Chronic S/P mitral valve replacement with bioprosthetic valve Chronic
[2016-07-31] MEDS: INSULIN GLARGINE 100 UNITS/ML SYRINGE SC SCH (20:47)
[2016-07-31] MEDS: ATORVASTATIN CALCIUM 20 MG TAB PO SCH (20:47)
[2016-08-01] MEDS: HYDROCODONE/APAP 5/325 TAB PO PRN ×2 (00:14→05:34)
[2016-08-01 04:43] LABS: % IMMATURE GRANULYOCYTES 0.2 % (0.0-1.1); ABSOLUTE IMMATURE GRANULOCYTES 0.02 10^3/uL (0.00-0.10); ADD DIFF? NO; ADD MORPH? NO; ADD SCAN? NO; ATYPICAL LYMPHOCYTE FLAG 0 (0-99); FRAGMENT RBC FLAG 0 (0-99); HEMATOCRIT 33.5 % (40.0-51.0); HEMOGLOBIN 10.9 g/dL (13.7-17.5); LEFT SHIFT FLG 40 (0-99); LIPEMIA HEMOLYSIS FLAG 80 (0-99); MEAN CELL HEMOGLOBIN 30.4 pg (27.9-34.1); MEAN CELL HEMOGLOBIN CONCENTR. 32.5 g/dL (32.4-36.7); MEAN CELL VOLUME 93.3 fL (81.5-99.8); MEAN PLATELET VOLUME 10.3 fL (8.7-11.7); PLATELET CLUMPS FLAG 0 (0-99); PLATELET COUNT 120 10^3/uL (150-400); RED BLOOD CELL COUNT 3.59 10^6/uL (4.40-6.38)
[2016-08-01 04:52] LABS: INR 1.15 (0.83-1.16); PROTIME(PATIENT) 14.7 SEC (12.0-15.0)
[2016-08-01 04:56] LABS: ANION GAP 10 mEq/L (8-16); CALCIUM 8.4 mg/dL (8.5-10.4); CARBON DIOXIDE 24 mEq/l (22-31); CHLORIDE 109 mEq/L (97-110); CREATININE 1.4 mg/dL (0.7-1.3); GLOMERULAR FILTRATION RATE 50; GLUCOSE 109 mg/dL (70-100); POTASSIUM 4.2 mEq/L (3.5-5.2); SODIUM 143 mEq/L (134-144)
[2016-08-01] MEDS: DICLOFENAC SODIUM TP SCH ×4 (05:06→19:49)
[2016-08-01] MEDS: INSULIN LISPRO 100 UNIT/ML SC SCH ×3 (08:20→18:57)
--- NOTE | 2016-08-01 08:49 | DX ---
PA and Lateral Chest Clinical Indications: Followup cardiac pacemaker placement; comparison July 29, 2016. Findings: There has been interval placement of a bipolar cardiac pacer from a left subclavian approac h. The leads appear in satisfactory positions. No pneumothorax is seen. Heart size is normal. Postope rative changes of prior valvular replacement are noted. Coronary artery stent is seen. There is persistent loculated pleural fluid associated with the major and minor fissures on the right . There is persistent blunting of the left costophrenic angle consistent with pleural effusion. Left basilar atelectasis is seen. Impression: 1. Uncomplicated transvenous pacer placement. 2. See above report for additional findings.
--- NOTE | 2016-08-01 09:11 | SOAPPROG ---
[facility] Progress Note Assessment/Plan: Assessment: 71 y/o man Icelandic speaking with IDDM, CAD s/p CABG and BIOMVR in December 2015 and chronic ischemic systolic CHF with LVEF 25% and class II-III NYHA sx. His post op course back seven months ago was very celina in hospital for six weeks. I have been following him closely in [facility]. At first I was not sure he would survive > one year so AICD placement was not discussed. He has been doing better able to participate in out-pt cardiac rehab and KEVIN at 2-3 blocks. Admitted from cardiac rehab with tiredness and CP two days ago. Updated L/R cardiac cath showed patent bypass grafts with LVEF 25% and [facility] hemodynamics : RA 8, PA 44/18 (28), PCWP 22 and CO/CI 4.5/2.5 L/min. He is s/p AICD and doing better. Still with atypical CP, lightheadedness and mild shortness of breath. Has just started to walk around room. REC: 1)restart Lasix 40mg PO qam. 2)start Aldactone 12.5mg PO qam. 3)rest of meds without changes. 4)ambulate in hallway. 5)discharge home Wednesday AM if feeling stronger and SBP > 90 and BMP stable. 6)thanks. 08/01/16 09:04 Subjective: interviewed with Mandarin hooker machine tender. Feels a little better than yesterday. Still with sharp CP in left chest wall. Mild shortness of breath walking around his hospital room. Denies syncope or PND. Hasn't ambulate in hallways yet. Objective: Vital Signs Temp Pulse Resp BP Pulse Ox 36.8 C 64 16 108/57 L 91 L 08/01/16 03:42 08/01/16 03:42 08/01/16 03:42 08/01/16 03:42 08/01/16 03:42 Laboratory Results 08/01/16 03:34 08/01/16 03:34 07/31/16 08/01/16 08/02/16 05:59 05:59 05:59 Intake Total 170 690 175 Output Total 175 225 Balance -5 465 175 PT 14.7 SEC (12.0-15.0) 08/01/16 03:34 INR 1.15 (0.83-1.16) 08/01/16 03:34 Physical Exam - Physical Exam General Appearance: alert EENT: PERRL/EOMI Neck: non-tender Respiratory: lungs clear Cardiac/Chest: regular rate, rhythm, gallop, systolic murmur (1/6 JAMIE), No JVD ( jvp to 7cm) Abdomen: normal bowel sounds, non-tender Extremities: normal range of motion, No pedal edema Neuro/Psych: alert ICD10 Worksheet Patient Problems: Problems Problem Status Diagnosed Chest wall pain Acute Dehydration Acute Dyspnea on exertion Acute Heart failure Acute Hyperkalemia Acute Hypotension Acute Renal failure, acute Acute Vertigo Acute ISIDRO (acute kidney injury) Acute Atrial fibrillation Acute Bacteremia due to Enterococcus Acute Chest pain Acute Congestive heart failure Acute Empyema of pleural space Acute Hypoxia Acute Palliative care encounter Acute Pleuritis Acute Pulmonary edema Acute Right middle lobe pneumonia Acute Severe sepsis Acute CAD in [place] artery Chronic Chronic anticoagulation Chronic Coronary stent restenosis Chronic Ischemic cardiomyopathy Chronic Language barrier, cultural differences Chronic S/P CABG x 3 Chronic S/P mitral valve replacement with bioprosthetic valve Chronic
[2016-08-01] MEDS: ASPIRIN 81 MG CHEWABLE TAB PO SCH (09:36)
[2016-08-01] MEDS: oxyCODONE IR 5 MG TAB PO PRN ×3 (09:36→18:55)
[2016-08-01] MEDS: buPROPion SR 150 MG TAB PO SCH (09:36)
[2016-08-01] MEDS: LISINOPRIL 5 MG TAB PO SCH (09:37)
[2016-08-01] MEDS: PANTOPRAZOLE SODIUM 40 MG TAB PO SCH (09:37)
[2016-08-01] MEDS: TAMSULOSIN HCL 0.4 MG CAP PO SCH (09:37)
[2016-08-01] MEDS: AMIODARONE HCL 200 MG TAB PO SCH (09:38)
[2016-08-01] MEDS: ISOSORBIDE MONONITRATE 30 MG TAB.SR PO SCH (09:38)
[2016-08-01] MEDS: SPIRONOLACTONE 25 MG TAB PO SCH (09:39)
[2016-08-01] MEDS: FUROSEMIDE 40 MG TAB PO SCH (09:39)
[2016-08-01] MEDS: ACETAMINOPHEN 325 MG TAB PO PRN ×3 (10:21→18:55)
--- NOTE | 2016-08-01 10:49 | PDCARPN ---
Cardiology Progress Note Assessment/Plan: Assessment/Plan: ICD implanted yesterday. Pt tolerated the procedure well. Wound is clean. CXR evaluated and leads in position. ICD checked. Numbers are optimal 08/01/16 10:47 Subjective: With the help of senior environmental scientist pt evaluated and is feeling fine. Complains of dizziness. Reviewed/Discussed With: hospitalist Objective: Vital Signs (8 Hrs) Temp Pulse Resp BP Pulse Ox 08/01/16 08:50 36.6 C 67 14 104/54 L 95 08/01/16 03:42 36.8 C 64 16 108/57 L 91 L Intake/Output (24 Hrs) 07/31/16 08/01/16 08/02/16 05:59 05:59 05:59 Intake Total 170 690 175 Output Total 175 225 Balance -5 465 175 Intake: Oral (ml) 150 690 IV Intake (ml) 20 75 IV Infused (ml) 100 ceFAZolin 1 GM/DEXTROSE 100 50 ml @ 200 mls/hr IV Q8H [facility] Rx#:[id number] Output: Urine (ml) 175 225 Urinal 175 125 Toilet 100 Result Diagrams: 08/01/16 03:34 08/01/16 03:34 - Physical Exam Constitutional: healthy appearing Eyes: PERRL, EOMI Cardiovascular: regular rate and rhythm, systolic murmur, other (wound site is clean. ) ICD10 Worksheet Patient Problems: Problems Problem Status Diagnosed Chest wall pain Acute Dehydration Acute Dyspnea on exertion Acute Heart failure Acute Hyperkalemia Acute Hypotension Acute Renal failure, acute Acute Vertigo Acute ISIDRO (acute kidney injury) Acute Atrial fibrillation Acute Bacteremia due to Enterococcus Acute Chest pain Acute Congestive heart failure Acute Empyema of pleural space Acute Hypoxia Acute Palliative care encounter Acute Pleuritis Acute Pulmonary edema Acute Right middle lobe pneumonia Acute Severe sepsis Acute CAD in [place] artery Chronic Chronic anticoagulation Chronic Coronary stent restenosis Chronic Ischemic cardiomyopathy Chronic Language barrier, cultural differences Chronic S/P CABG x 3 Chronic S/P mitral valve replacement with bioprosthetic valve Chronic
[2016-08-01] MEDS ORDERED: MECLIZINE HCL 25 MG TAB PO PRN (11:06)
--- NOTE | 2016-08-01 11:10 | HOSPPROG ---
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 However, he is difficult to examine. He does not appear ot have any new focal neurologic deficits. His vertigo could be central from a previous undiagnosed stroke vs cardiogenic in the setting of his CM and low BP vs anxiety. Will trial meclizine to see if it helps # history of VT and atrial fibrillation -continue Lovenox [place] and coumadin # history diabetes mellitus -continue home dose of glargine and sliding scale # BPH Subjective: pt seen with banking manager present. reports persistent chronic vertigo for 6 months. no new neuro deficits. reports chest pain over device site Objective: Vital Signs Temp Pulse Resp BP Pulse Ox 36.6 C 67 14 104/54 L 95 08/01/16 08:50 08/01/16 08:50 08/01/16 08:50 08/01/16 08:50 08/01/16 08:50 Laboratory Results 08/01/16 03:34 08/01/16 03:34 07/31/16 08/01/16 08/02/16 05:59 05:59 05:59 Intake Total 170 690 175 Output Total 175 225 Balance -5 465 175 PT 14.7 SEC (12.0-15.0) 08/01/16 03:34 INR 1.15 (0.83-1.16) 08/01/16 03:34 - Physical Exam Cardiovascular: regular rate and rhythym, no murmur, rub, or gallop, other (icd insertion site looks good) Respiratory: no respiratory distress, no rales or rhonchi, clear to auscultation Gastrointestinal: normoactive bowel sounds, soft, non-tender abdomen, no palpable masses, No guarding, No rebound Neurologic: AAOx3, sensation intact bilaterally ICD10 Worksheet Patient Problems: Problems Problem Status Diagnosed Chest wall pain Acute Dehydration Acute Dyspnea on exertion Acute Heart failure Acute Hyperkalemia Acute Hypotension Acute Renal failure, acute Acute Vertigo Acute ISIDRO (acute kidney injury) Acute Atrial fibrillation Acute Bacteremia due to Enterococcus Acute Chest pain Acute Congestive heart failure Acute Empyema of pleural space Acute Hypoxia Acute Palliative care encounter Acute Pleuritis Acute Pulmonary edema Acute Right middle lobe pneumonia Acute Severe sepsis Acute CAD in [place] artery Chronic Chronic anticoagulation Chronic Coronary stent restenosis Chronic Ischemic cardiomyopathy Chronic Language barrier, cultural differences Chronic S/P CABG x 3 Chronic S/P mitral valve replacement with bioprosthetic valve Chronic
[2016-08-01] MEDS: WARFARIN SODIUM 3 MG TAB PO SCH (18:47)
[2016-08-01] MEDS: CARVEDILOL 6.25 MG TAB PO SCH (18:47)
[2016-08-01] MEDS: ATORVASTATIN CALCIUM 20 MG TAB PO SCH (20:12)
[2016-08-01] MEDS: ENOXAPARIN 60 MG/0.6 ML SYR SC SCH (21:32)
[2016-08-01] MEDS: INSULIN GLARGINE 100 UNITS/ML SYRINGE SC SCH (21:32)
[2016-08-02 04:30] LABS: HEMATOCRIT 32.4 % (40.0-51.0); HEMOGLOBIN 10.9 g/dL (13.7-17.5); MEAN CELL HEMOGLOBIN 30.9 pg (27.9-34.1); MEAN CELL HEMOGLOBIN CONCENTR. 33.6 g/dL (32.4-36.7); MEAN CELL VOLUME 91.8 fL (81.5-99.8); RED BLOOD CELL COUNT 3.53 10^6/uL (4.40-6.38)
[2016-08-02 04:52] LABS: INR 1.1 (0.83-1.16); PROTIME(PATIENT) 14.1 SEC (12.0-15.0)
[2016-08-02 05:05] LABS: ANION GAP 8 mEq/L (8-16); CALCIUM 8.8 mg/dL (8.5-10.4); CARBON DIOXIDE 26 mEq/l (22-31); CHLORIDE 106 mEq/L (97-110); CREATININE 1.4 mg/dL (0.7-1.3); GLOMERULAR FILTRATION RATE 50; GLUCOSE 86 mg/dL (70-100); POTASSIUM 4.2 mEq/L (3.5-5.2); SODIUM 140 mEq/L (134-144)
[2016-08-02] MEDS: DICLOFENAC SODIUM TP SCH ×2 (05:41→08:45)
[2016-08-02 08:17] VITALS: BP 115/68; RESP 16; TEMP 98
[2016-08-02] MEDS: SPIRONOLACTONE 25 MG TAB PO SCH (08:42)
[2016-08-02] MEDS: LISINOPRIL 5 MG TAB PO SCH (08:42)
[2016-08-02] MEDS: ISOSORBIDE MONONITRATE 30 MG TAB.SR PO SCH (08:42)
[2016-08-02] MEDS: ENOXAPARIN 60 MG/0.6 ML SYR SC SCH (08:43)
[2016-08-02] MEDS: CARVEDILOL 6.25 MG TAB PO SCH (08:43)
[2016-08-02] MEDS: FUROSEMIDE 40 MG TAB PO SCH (08:43)
[2016-08-02] MEDS: TAMSULOSIN HCL 0.4 MG CAP PO SCH (08:43)
[2016-08-02] MEDS: PANTOPRAZOLE SODIUM 40 MG TAB PO SCH (08:43)
[2016-08-02] MEDS: INSULIN LISPRO 100 UNIT/ML SC SCH ×2 (08:44→14:04)
[2016-08-02] MEDS: ASPIRIN 81 MG CHEWABLE TAB PO SCH (08:44)
[2016-08-02] MEDS: AMIODARONE HCL 200 MG TAB PO SCH (08:44)
[2016-08-02] MEDS: buPROPion SR 150 MG TAB PO SCH (08:44)
[2016-08-02] MEDS: ACETAMINOPHEN 325 MG TAB PO PRN (09:02)
--- NOTE | 2016-08-02 09:05 | SOAPPROG ---
[facility] Progress Note Assessment/Plan: Assessment: 71 y/o man Slovak speaking with IDDM, CAD s/p CABG and BIOMVR in December 2015 and chronic ischemic systolic CHF with LVEF 25% and class II-III NYHA sx. His post op course back seven months ago was very celina in hospital for six weeks. I have been following him closely in [facility]. At first I was not sure he would survive > one year so AICD placement was not discussed. He has been doing better able to participate in out-pt cardiac rehab and KEVIN at 2-3 blocks. Admitted from cardiac rehab with tiredness and CP two days ago. Updated L/R cardiac cath showed patent bypass grafts with LVEF 25% and C hemodynamics : RA 8, PA 44/18 (28), PCWP 22 and CO/CI 4.5/2.5 L/min. He is s/p AICD and doing better. He ambulated hallways yesterday with PT without problems. He has had and still has some atypical left chest pain that I think is more musculoskeletal than angina or pulmonary edema. He appears euvolemic. REC: 1)no change in current meds. 2)will discuss with Dr. Gage about a pain med for his left chest wall pain not NSAID type as on coumadin and has chronic CHF. 3)okay to discuss home to daughter's house today from CHF standpoint. 4)hold on out-pt PT for 1-2 weeks. 5)no movement of left arm about left shoulder line for next 2-3 weeks to let new AICD heal in. 6)f/u [facility]F clinic and AICD wound check this Wednesday09/07/16. 7)out-pt labs one hour before clinic appts this wednesday (CBC, BMP and PT/INR). My office will schedule tommorrow with pt's daughter. 08/02/16 09:01 Subjective: feels a little better than yesterday. Feels stronger and able to ambulate further. Still was some left chest wall pain, mild KEVIN and dizziness. No PND or syncope or cough or fevers or chills. Objective: Vital Signs Temp Pulse Resp BP Pulse Ox 36.7 C 74 16 115/68 95 08/02/16 08:16 08/02/16 08:16 08/02/16 08:16 08/02/16 08:16 08/02/16 08:16 Laboratory Results 08/02/16 03:39 08/02/16 03:39 08/01/16 08/02/16 08/03/16 05:59 05:59 05:59 Intake Total 690 1825 Output Total 225 Balance 465 1825 PT 14.1 SEC (12.0-15.0) 08/02/16 03:39 INR 1.10 (0.83-1.16) 08/02/16 03:39 Physical Exam - Physical Exam General Appearance: alert EENT: PERRL/EOMI Neck: non-tender Respiratory: lungs clear Cardiac/Chest: regular rate, rhythm, gallop, systolic murmur, No JVD (jvp to 7cm.) Peripheral Pulses: 2+: carotid (R), carotid (L), femoral (R), femoral (L), dorsalis-pedis (R), dorsalis-pedis (L) Abdomen: normal bowel sounds, non-tender, No ascites Skin: warm/dry Extremities: non-tender, No pedal edema Neuro/Psych: alert ICD10 Worksheet Patient Problems: Problems Problem Status Diagnosed Chest wall pain Acute Dehydration Acute Dyspnea on exertion Acute Heart failure Acute Hyperkalemia Acute Hypotension Acute Renal failure, acute Acute Vertigo Acute ISIDRO (acute kidney injury) Acute Atrial fibrillation Acute Bacteremia due to Enterococcus Acute Chest pain Acute Congestive heart failure Acute Empyema of pleural space Acute Hypoxia Acute Palliative care encounter Acute Pleuritis Acute Pulmonary edema Acute Right middle lobe pneumonia Acute Severe sepsis Acute CAD in osage artery Chronic Chronic anticoagulation Chronic Coronary stent restenosis Chronic Ischemic cardiomyopathy Chronic Language barrier, cultural differences Chronic S/P CABG x 3 Chronic S/P mitral valve replacement with bioprosthetic valve Chronic
--- NOTE | 2016-08-02 09:48 | CPEKG ---
Heart Rate: 65 RR Interval: 923 P-R Interval: 180 QRSD Interval: 110 QT Interval: 444 QTC Interval: 462 P [place]: 72 QRS [place]: 38 T Wave [place]: 227 EKG Severity - ABNORMAL ECG - EKG Impression: SINUS RHYTHM EKG Impression: NONSPECIFIC INTRAVENTRICULAR CONDUCTION DELAY EKG Impression: PROBABLE LVH WITH SECONDARY REPOL ABNRM EKG Impression: INFARCT, AGE INDETERMINATE Electronically Signed By: Freeman Rojas 03-Aug-2016 07:42:57
[2016-08-02 10:42] VITALS: PULSE 108; O2SAT 94
--- NOTE | 2016-08-02 12:51 | GDS ---
[f rep st] DISCHARGE SUMMARY DISCHARGE DIAGNOSES: 1. Atypical chest pain, most likely due to musculoskeletal pain in the setting of previous sternotom y. 2. Ischemic cardiomyopathy with ejection fraction of 20%, status post implantable cardioverter-defib rillator placement. 3. Chronic vertigo. 4. History of ventricular tachycardia and atrial fibrillation. 5. History of insulin-dependent diabetes mellitus. 6. BPH. CONSULTANTS: [facility]. HOSPITAL COURSE AND STAY BY PROBLEM: 1. Chest pain: The patient was admitted to the telemetry, where serial troponins were done which we re unremarkable. The patient was subsequently taken to the [facility] lab[facility] on 07/30/[address] Laughlin, w here he was found to have patent bypass grafts, mild pulmonary hypertension, and ischemic cardiomyopa thy with severely reduced EF of 20%. 2. Cardiology service recommended ICD placement, which was done by Dr. Puentes on 07/31/2016. Postproc edure, the patient has done well. He has continued to have some dizziness; see below. 3. Chronic dizziness: This finding was discussed with the patient and his family via an lead pl sql developer . The etiology of his dizziness is uncertain. It could be cardiogenic in the setting of his low eje ction fraction or it could be neurologic as a result from an undiagnosed stroke 6 months ago. At any rate, during this hospital stay the patient has not had any new noted neurologic findings. Will disc harge with a prescription for meclizine to see if this helps. It is possible that some of his sympto ms could be related to some underlying anxiety, which his family has shared with me as being a proble m. 4. Chest wall pain: Once again, the patient was admitted out of concerns for acute coronary syndrom e. It appears that his chest wall pain is likely chronic in nature and started after his bypass surg elena. Will trial a Lidoderm patch to see if this helps. PHYSICAL EXAM: VITAL SIGNS: On day of discharge blood pressure 115/60, pulse 74, respiratory rate 1 6, O2 sat 95% on room air, temperature afebrile. GENERAL: No acute distress. HEART: S1, S2. LUNG S: Clear. ABDOMEN: Soft. EXTREMITIES: No edema. PROCEDURES DONE THIS HOSPITAL STAY: Cardiac catheterization done 07/30/2016, refer to report. ICD p lacement done 07/31/[address] Puentes, refer to report. DISCHARGE MEDICATIONS: Please refer to discharge medication reconciliation in [facility] for full deta ils. Below is a preliminary list. New medications on hospital discharge: 1. Lidoderm patch to be used as needed 12 hours on, 12 hours off to area of pain. 2. Aldactone 12.5 mg daily. 3. Lasix 40 mg daily. 4. Isosorbide mononitrate 30 mg daily. All other home medications were continued as his usual dosages. DISCHARGE INSTRUCTIONS: The patient will be discharged from the hospital, where he should follow up at [facility] as directed. He will need routine monitoring of his INR. /[id number]/MODL
[2016-08-02] MEDS: WARFARIN SODIUM 3 MG TAB PO SCH (14:04)
--- NOTE | 2016-08-06 13:50 | PQFORM ---
PHYSICIAN QUERY FORM Needs Your Response This query form is being sent to you to assure this patient record is coded properly. 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 Benoit, The diagnosis of Acute on Chronic Congestive Systolic Heart Failure is documented in the Diagnostic Cath note by the guest services representative dated 07/30/2016.~ Would this be appropriate as an additional diagnosis on the discharge summary? Yes x No Other Clinically Undetermined Many thanks, ALBERTO Persaud HIM/Coding Department INSTRUCTIONS FOR RESPONSE: Answer question by clicking on the "Edit Document" button. Move cursor to area below the stars. When complete, hit "Save." Click on the "Sign" button, then click "Sign" again. Type in your PIN and hit "Enter." MTDD
== END 2016-08-02 16:20 | disposition home or self-care (01) | DRG 224 ==
LOC: F2W 19:55 → OBSVTOIN 07-30 15:37
PROVIDERS: ADMIT Student in an Organized Health Care Education/Training Program; ATTEND Family Medicine
PROC: B2181ZZ Fluoroscopy of Left Internal Mammary Bypass Graft using Low Osmolar Contrast (ICD-10-PCS; 2016-07-30)
PROC: B2151ZZ Fluoroscopy of Left Heart using Low Osmolar Contrast (ICD-10-PCS; 2016-07-30)
PROC: B2111ZZ Fluoroscopy of Multiple Coronary Arteries using Low Osmolar Contrast (ICD-10-PCS; 2016-07-30)
PROC: 4A023N7 Measurement of Cardiac Sampling and Pressure, Left Heart, Percutaneous Approach (ICD-10-PCS; 2016-07-30)
PROC: B21F1ZZ Fluoroscopy of Other Bypass Graft using Low Osmolar Contrast (ICD-10-PCS; 2016-07-30)
PROC: 0JH608Z Insertion of Defibrillator Generator into Chest Subcutaneous Tissue and Fascia, Open Approach (ICD-10-PCS; principal; 2016-07-31)
PROC: 02H63KZ Insertion of Defibrillator Lead into Right Atrium, Percutaneous Approach (ICD-10-PCS; principal; 2016-07-31)
PROC: 02HK3KZ Insertion of Defibrillator Lead into Right Ventricle, Percutaneous Approach (ICD-10-PCS; principal; 2016-07-31)
PROC: B5171ZA Fluoroscopy of Left Subclavian Vein using Low Osmolar Contrast, Guidance (ICD-10-PCS; principal; 2016-07-31)
DX: R07.89 Other chest pain (principal); I50.23 Acute on chronic systolic (congestive) heart failure; I25.5 Ischemic cardiomyopathy; I25.10 Atherosclerotic heart disease of native coronary artery without angina pectoris; I27.2 Other secondary pulmonary hypertension; I47.2 Ventricular tachycardia; I48.0 Paroxysmal atrial fibrillation; H57.8 Other specified disorders of eye and adnexa; I25.2 Old myocardial infarction; E11.22 Type 2 diabetes mellitus with diabetic chronic kidney disease; N18.9 Chronic kidney disease, unspecified; D64.9 Anemia, unspecified; F32.9 Major depressive disorder, single episode, unspecified; N40.0 Benign prostatic hyperplasia without lower urinary tract symptoms; I69.354 Hemiplegia and hemiparesis following cerebral infarction affecting left non-dominant side; Z95.1 Presence of aortocoronary bypass graft; Z95.5 Presence of coronary angioplasty implant and graft; Z95.2 Presence of prosthetic heart valve; Z86.718 Personal history of other venous thrombosis and embolism; Z87.820 Personal history of traumatic brain injury; Z79.01 Long term (current) use of anticoagulants
CPT/HCPCS: 97161-GP; 97166-GO; C1721; C1777; C1898; G0378; J0461; J0690; J1650; J1815; J2250; J3010; Q9967